=== PATIENT | male | born 1950 | race African-American/Black ===

== ENCOUNTER 2018-05-22 14:41 | Emergency (ER) | payer SELFPAY ==
[~2018-05-22] VITALS: Ht 182.9 cm; Wt 86.0 kg
[2018-05-22 14:50] VITALS: BP 156/99
== END 2018-05-22 17:04 | disposition left against medical advice (07) ==
LOC: ER 14:41
DX: M79.672 Pain in left foot (principal); Z53.21 Procedure and treatment not carried out due to patient leaving prior to being seen by health care provider